=== PATIENT | female | born 1990 | race Caucasian/White ===

== ENCOUNTER 2018-03-04 15:15 | Emergency (ER) | payer OTHER ==
[2018-03-04 16:47] LABS: BASO % 0.1 % (0.0-1.0); EOS % 0.5 % (0.0-3.0); HEMOGLOBIN 11.4 g/dl (12.0-15.5); IMMATURE GRANULOCYTE % 0.3 % (0-3.0); LYMPH # 1.8 10^3/uL (1.5-6.5); LYMPH % 22.9 % (24.0-44.0); MEAN CORPUSCULAR HEMOGLOBIN 28.9 pg (27.0-33.0); MEAN CORPUSCULAR HGB CONC 32.6 g/dl (32.0-36.5); MEAN CORPUSCULAR VOLUME 88.6 fl (80.0-96.0); MONO # 0.8 10^3/uL (0.0-0.8); NEUTROPHILS # 5.2 10^3/uL (1.8-7.7); NEUTROPHILS % 66.2 % (36.0-66.0); PLATELET COUNT, AUTOMATED 234 10^3/uL (150-450); RED BLOOD COUNT 3.95 10^6/uL (4.00-5.40); WHITE BLOOD COUNT 7.9 10^3/uL (4.0-10.0)
[2018-03-04 17:08] LABS: ANION GAP 8 MEQ/L (8-16); BLOOD UREA NITROGEN 7 MG/DL (7-18); CALCIUM LEVEL 8.3 MG/DL (8.5-10.1); CARBON DIOXIDE LEVEL 25 MEQ/L (21-32); CHLORIDE LEVEL 106 MEQ/L (98-107); CREATININE FOR GFR 0.45 MG/DL (0.55-1.30); GLOMERULAR FILTRATION RATE > 60.0 (>60); GLUCOSE, FASTING 89 MG/DL (70-100); MAGNESIUM LEVEL 2.1 MG/DL (1.8-2.4); POTASSIUM SERUM 4.2 MEQ/L (3.5-5.1); SODIUM LEVEL 139 MEQ/L (136-145)
[2018-03-04 17:53] LABS: AMORPHOUS SEDIMENT SMALL (NEGATIVE); APPEARANCE, URINE CLOUDY (CLEAR); BACTERIA, URINE AUTO NEGATIVE (NEGATIVE); BILIRUBIN, URINE AUTO NEGATIVE (NEGATIVE); BLOOD, URINE BLOOD NEGATIVE (NEGATIVE); COLOR, URINE YELLOW (YELLOW); GLUCOSE, URINE (UA) AUTO NEGATIVE (NEGATIVE); KETONE, URINE AUTO NEGATIVE (NEGATIVE); LEUKOCYTE ESTERASE, URINE AUTO 1+ (NEGATIVE); NITRITE, URINE AUTO NEGATIVE (NEGATIVE); PROTEIN, URINE AUTO NEGATIVE (NEGATIVE); RBC, URINE AUTO 2 /HPF (0-3); SPECIFIC GRAVITY URINE AUTO 1.009 (1.002-1.035); SQUAMOUS EPITHELIAL CELL UR AU 9 /HPF (0-6); TRANSITIONAL EPITHELIAL AUTO <1 /HPF; UROBILINOGEN, URINE AUTO 0.2 mg/dL (0.0-2.0); WBC, URINE AUTO 5 /HPF (0-3)
== END 2018-03-04 18:11 | disposition home or self-care (01) ==
LOC: M ED 15:15
DX: O99.89 Other specified diseases and conditions complicating pregnancy, childbirth and the puerperium (principal); H81.10 Benign paroxysmal vertigo, unspecified ear; O99.012 Anemia complicating pregnancy, second trimester; Z3A.00 Weeks of gestation of pregnancy not specified; Z79.82 Long term (current) use of aspirin; Z79.899 Other long term (current) drug therapy; Z88.1 Allergy status to other antibiotic agents
CPT/HCPCS: 93005

== ENCOUNTER 2018-05-04 16:59 | Outpatient (CLI) | payer OTHER ==
[~2018-05-04] VITALS: Ht 160 cm; Wt 75.4 kg
[~2018-05-04 16:59] MED LIST: ASPI81TA85 PO; MAGN250T11 PO; PRENTAB55 PO; ZOLO25TA PO
[2018-05-04 17:19] VITALS: BP 123/67
[2018-05-04] MEDS ORDERED: MAPA500T17 PO (17:26)
[2018-05-04 17:54] VITALS: BP 119/70
[2018-05-04] MEDS ORDERED: CYCLOBENZAPRINE 10 MG TAB PO ONE ×2 (18:00→18:30)
[2018-05-04] MEDS ORDERED: CYCLOBENZAPRINE 5MG TABLET PO ONE ×2 (18:30)
== END 2018-05-04 18:28 | disposition home or self-care (01) ==
LOC: M LDO 16:59
PROVIDERS: ATTEND Obstetrics & Gynecology
DX: O9A.212 Injury, poisoning and certain other consequences of external causes complicating pregnancy, second trimester (principal); V46.9XXA Unspecified car occupant injured in collision with other nonmotor vehicle in traffic accident, initial encounter; Y92.89 Other specified places as the place of occurrence of the external cause; Z3A.25 25 weeks gestation of pregnancy
CPT/HCPCS: G0378; G0463

== ENCOUNTER 2018-05-31 18:29 | Emergency (ER) | payer OTHER ==
[~2018-05-31] VITALS: Ht 160 cm; Wt 80.7 kg
[~2018-05-31 18:29] MED LIST changes: +MAPA500T2 PO
[2018-05-31] MEDS ORDERED: KETOROLAC 60 MG/2 ML VIAL (J1885) IM ONE (19:45)
[2018-05-31] MEDS ORDERED: METHOCARBAMOL 500 MG TAB PO ONE (19:45)
[2018-05-31] MEDS ORDERED: ROBA500T PO (21:00)
[2018-05-31] MEDS ORDERED: NORCOTAB PO (21:00)
[2018-05-31 21:09] VITALS: BP 121/60
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
== END 2018-05-31 21:15 | disposition home or self-care (01) ==
LOC: M ED 18:29
DX: M54.5 Low back pain (principal)
CPT/HCPCS: 72100; 96372; 99283; J1885

== ENCOUNTER 2018-06-13 11:52 | Emergency (ER) | payer OTHER ==
[~2018-06-13] VITALS: Ht 160 cm; Wt 81.8 kg
[~2018-06-13 11:52] MED LIST changes: +NORCOTAB PO; +ROBA500T PO
[2018-06-13] MEDS ORDERED: SERT-155 (11:58)
[2018-06-13] MEDS: PERCOCET 5MG/325MG TAB PO ONE (13:31)
[2018-06-13] MEDS: BACLOFEN 10 MG TAB PO ONE (13:31)
[2018-06-13 14:55] VITALS: BP 118/60
== END 2018-06-13 14:56 | disposition home or self-care (01) ==
LOC: M ED 11:52
DX: O99.89 Other specified diseases and conditions complicating pregnancy, childbirth and the puerperium (principal); M54.5 Low back pain

== ENCOUNTER 2018-07-08 11:07 | Outpatient (CLI) | payer OTHER ==
[~2018-07-08] VITALS: Ht 160 cm; Wt 85.5 kg
[~2018-07-08 11:07] MED LIST changes: +SERT-155
[2018-07-08 11:28] VITALS: BP 118/67
[2018-07-08] MEDS ORDERED: PRENTAB9 PO (11:31)
[2018-07-08 12:01] VITALS: BP 119/66
--- NOTE | 2018-07-08 13:03 | IPNPDOC ---
Text Note Date of Service The patient was seen on 07/08/18. NOTE Triage Note Alma is a 28yo with SIUP at approx 34wk who presents with not really feeling any movement since last night. She did begin feeling movement in triage. Has had some congestion she thinks related to seasonal allergies, but otherwise not feeling ill. No LOF, no vaginal bleeding, no ctx. No f/c/n/v. She has hx of GHTN x2, is set to do a 24hr UP test this week. She also has hx of both a 3mll and 4mll. She attends Centering. Vitals wnl. Afebrile. General: WDWN, resting comfortably Abdomen: soft, gravid, NTTP Extremities: no edema BLE TAUS: vela IUP with oblique lie, +FCA, +FM, MVP 7cm, anterior placenta Cat I FHRT with bl 110, +accels, -decels, mod tameka [place]: rare ctx Assessment: Alma is a 28yo with SIUP at approx 34wk with DFM having reassuring assessment with Cat I FHRT and MVP of 7cm. Vitals wnl, benign exam. Plan: -safe for discharge -continue with routine centering visits -return 24hr UP test to lab this week as previously instructed -continue adequate hydration and activity as tolerated -I did employment counselor Alma at this visit regarding hx of her 4mll that followed a 3mll. She has some dyspareunia. We discussed risk for recurrence of 4mll and if that should happen, she could have worsening of dyspareunia potentially or even fecal incontinence later in life. There is of course the possibility that she could have an with no laceration at all or a very minor one. She is a candidate for PLTCS. We discussed that surgery has risks also, so she should consider the risks and benefits and we can discuss further at a visit in the future if she would like to. MD LESLY Hunter,Anderson, I+O LESLY, Anderson, I+O Vital Signs Date Time Temp Pulse Resp B/P (MAP) Pulse Ox O2 Delivery O2 Flow Rate FiO2 07/08/18 12:01 91 18 119/66 (83) 07/08/18 11:28 98.6 Eulalia Hines MD Jul 08, 2018 13:02
== END 2018-07-08 13:05 | disposition home or self-care (01) ==
LOC: M LDO 11:07
PROVIDERS: ATTEND Obstetrics & Gynecology
DX: O36.8130 Decreased fetal movements, third trimester, not applicable or unspecified (principal); Z3A.34 34 weeks gestation of pregnancy
CPT/HCPCS: 59025; 76815; G0378; G0463

== ENCOUNTER 2018-07-16 16:06 | Outpatient (CLI) | payer OTHER ==
[~2018-07-16] VITALS: Ht 160 cm; Wt 86.4 kg
[~2018-07-16 16:06] MED LIST changes: +PRENTAB9 PO
[2018-07-16 16:21] VITALS: BP 146/83
[2018-07-16] MEDS ORDERED: MAPA500T2 PO (16:27)
[2018-07-16] MEDS ORDERED: FIORICET TAB PO ONE (17:30)
[2018-07-16 17:39] VITALS: BP 134/70
[2018-07-16 17:58] LABS: HEMATOCRIT 30.6 % (36.0-47.0); MEAN CORPUSCULAR HEMOGLOBIN 30.9 pg (27.0-33.0); MEAN CORPUSCULAR HGB CONC 32.7 g/dl (32.0-36.5); MEAN CORPUSCULAR VOLUME 94.4 fl (80.0-96.0); PLATELET COUNT, AUTOMATED 123 10^3/uL (150-450); RED BLOOD COUNT 3.24 10^6/uL (4.00-5.40); WHITE BLOOD COUNT 11.9 10^3/uL (4.0-10.0)
[2018-07-16 18:18] LABS: CREATININE,RANDOM URINE 56.5 MG/DL
[2018-07-16 18:20] LABS: ALBUMIN 2.7 GM/DL (3.2-5.2); ALT/SGPT 17 U/L (12-78); BILIRUBIN,TOTAL 0.2 MG/DL (0.2-1.0); BLOOD UREA NITROGEN 4 MG/DL (7-18); CALCIUM LEVEL 8.5 MG/DL (8.5-10.1); CARBON DIOXIDE LEVEL 24 MEQ/L (21-32); CHLORIDE LEVEL 109 MEQ/L (98-107); CREATININE FOR GFR 0.49 MG/DL (0.55-1.30); GLOMERULAR FILTRATION RATE > 60.0 (>60); GLUCOSE, FASTING 76 MG/DL (70-100); SODIUM LEVEL 141 MEQ/L (136-145); TOTAL PROTEIN 6.2 GM/DL (6.4-8.2)
[2018-07-16 18:49] VITALS: BP 166/88
[2018-07-16] MEDS ORDERED: CYPROHEPTADINE 4 MG TAB GT SCH (19:00)
--- NOTE | 2018-07-16 20:23 | IPNPDOC ---
Text Note Date of Service The patient was seen on 07/16/18. NOTE Triage Note Alma is a 28yo with SIUP at 35w5d who presents with persistent headache/migraine since last night. She tried tylenol last night and again this morning but had no relief. She has a hx of GHTN x2 and has taken ASA this . Recently she completed a 24hr urine protein which was 438mg (increased from baseline 127mg), which was performed just because she wasn't feeling well. She does not have any documented elevated bp's from clinic encounters. She does have a history of migraines. Fioricet makes her nauseous and Mg she felt never helped her. She has not tried anything else other than the tylenol. She feels movement. No LOF, no vaginal bleeding, no ctx. No f/c/n/v. Vitals: BPs: 145/76 then multiple normal bp's then 146/83 (also had a systolic bp 160's when lying on the cuff), afebrile Exam: General: WDWN, resting comfortably Abdomen: soft, gravid, NTTP Extremities: no edema BLE SSE (RN as bench technician): closed/thick/high Cat I FHRT with bl 110, +accels, -decels, mod tameka [place]: occasional ctx Labs: H/H 03/14.6, plt 123 (plt were 175 at 28wk) urine prot: creat 0.55 creat 0.49, AST 19, ALT 17 Assessment: Alma is a 28yo with SIUP at 35w5d with current migraine in the setting of gestational proteinuria, not yet meeting criteria for GHTN or pre-E. This headache does not seem consistent with pre-E PEREA given that patient was sleeping in triage and had good appetite to eat dinner. She was given a dose of cyproheptadine in triage and had some relief. Today is first noted mild range bp's- no others noted in her clinic chart. Mild anemia noted on H/H, plt are 123 but this is not a drastic change from 28wk. Normal creat/LFTs. Reassuring status. No e/o PTL. Plan: -safe for discharge -patient to be seen in clinic for weekly visits -will begin APFTs to keep a close eye on bp's and watch carefully for development of GHTN/pre-E. We can begin these this Tuesday after her centering visit. -patient desires PLTCS for history of 3mll followed by 4mll. She was previously counseled and will have pre-op visit as scheduled. -encouraged increased hydration -if patient would like cyproheptadine at home for migraines, we can write an Rx to [facility] -return precautions discussed. Dr. Eulalia Hines MD VS,Anderson, I+O VS, Anderson, I+O Laboratory Tests 07/16/18 17:41 Red Blood Count 3.24 L, Mean Corpuscular Volume 94.4, Mean Corpuscular Hemoglobin 30.9, Mean Corpuscular Hemoglobin Concent 32.7, Red Cell Distribution Width 13.9, Calcium Level 8.5, Aspartate Amino Transf (AST/SGOT) 19, Alanine Aminotransferase (ALT/SGPT) 17, Alkaline Phosphatase 140 H, Total Bilirubin 0.2, Total Protein 6.2 L, Albumin 2.7 L Vital Signs Date Time Temp Pulse Resp B/P (MAP) Pulse Ox O2 Delivery O2 Flow Rate FiO2 07/16/18 18:49 97.8 84 18 166/88 (114) Eulalia Hines MD Jul 16, 2018 20:17
== END 2018-07-16 20:30 | disposition home or self-care (01) ==
LOC: M LDO 16:06
PROVIDERS: ATTEND Obstetrics & Gynecology
DX: O99.89 Other specified diseases and conditions complicating pregnancy, childbirth and the puerperium (principal); G43.909 Migraine, unspecified, not intractable, without status migrainosus; Z3A.35 35 weeks gestation of pregnancy
CPT/HCPCS: 36415; 59025; 80053; 82570; 84156; 85027; G0378; G0463

== ENCOUNTER 2018-07-22 14:06 | Outpatient (CLI) | payer OTHER ==
[~2018-07-22] VITALS: Ht 160 cm; Wt 90.6 kg
[2018-07-22 14:32] VITALS: BP 124/77
[2018-07-22 16:03] LABS: CREATININE,RANDOM URINE 16.4 MG/DL; TOTAL PROTEIN,RANDOM URINE 11.6 MG/DL (0.0-12.0)
[2018-07-22 16:09] VITALS: BP 131/71
[2018-07-22 16:16] LABS: ALT/SGPT 18 U/L (12-78); BILIRUBIN,TOTAL 0.4 MG/DL (0.2-1.0); CREATININE FOR GFR 0.51 MG/DL (0.55-1.30); GLOMERULAR FILTRATION RATE > 60.0 (>60); LDH LACTATE DEHYDROGENASE 199 U/L (84-246); URIC ACID 4.3 MG/DL (2.6-6.0)
--- NOTE | 2018-07-24 11:05 | HPE ---
DATE OF ADMISSION: 07/22/2018 This lady is a 28-year-old 3, para 2, last menstrual period (LMP) 11/08/2017, estimated date of confinement (EDC) 08/15/2018 at 36 and 6 weeks of gestation, was seen here in labor and delivery for evaluation of preeclampsia three days ago. Her history is that she had an elevated blood pressure, ruled out gestational hypertension. She had a proteinuria and she was doing her own blood pressure monitoring with blood pressure cuff that was from [facility] and had significant elevated blood pressures, but she has no headache. No visual disturbances. No right upper quadrant pain. No edema. Her risk factors is she has had gestational hypertension her last two pregnancies. She has had perineal trauma and is scheduled for elective primary section August 08, 2018. She has depression and goes to the [place] for help, is on Zoloft, has migraines which are retractable, and she has urinary protein that is elevated at 428. PAST HISTORY: 2015 at 39 weeks, 9 pound 6 ounce male, fourth degree tear, gestational hypertension. 2013 at 42 weeks, 8 pound 8 ounce male, third degree tear, gestational hypertension. LABS: O positive, HIV negative, hepatitis negative, RPR negative, rubella immune. Varicella immune. Pap normal. 1 hour glucose was 98. Her previous blood work her chemistry was normal. Her protein creatinine ratio is 0.54 and a 24 hour urine was 428. Blood pressure today is 124/72, respirations are 18, pulse 117 and temperature is 98.4. Category 1 strip. No contractions, moderate variability. No decelerations and baseline was normal. We repeated her preeclamptic profile. Her protein creatinine ratio is 0.70. The rest the preeclamptic profile was normal. We repeated her blood pressure an hour later and her blood pressure is 131/71, respirations were 18, pulse was 100. The patient does not have right upper quadrant pain. No visual disturbances. No edema and demonstrates no headache or migraine. Our plan of management is to allow her to go home. She has an appointment Dr. Hines in 48 hours. She has an elective primary section on August 08, 2018. We may want to bring that forward. We reviewed with the risks and benefits of preeclampsia and when to call the provider, which include headache, migraine visual disturbances, right upper quadrant pain, edema, or decreased movement, bleeding, none of which she has had. The patient was discharged undelivered. All questions were answered and she has a followup in 48 hours.
== END 2018-07-22 16:45 | disposition home or self-care (01) ==
LOC: M LDO 14:06
PROVIDERS: ATTEND Obstetrics & Gynecology
DX: O16.3 Unspecified maternal hypertension, third trimester (principal); Z3A.36 36 weeks gestation of pregnancy
CPT/HCPCS: 59025; 82247; 82565; 82570; 83615; 84156; 84450; 84460; 84550; G0378; G0463

== ENCOUNTER 2018-07-25 15:57 | Inpatient (IN) | payer OTHER ==
[~2018-07-25] VITALS: Ht 160 cm; Wt 90.3 kg
[2018-07-25] MEDS ORDERED: PENICILLIN G POTASSIUM IV 5 MU in D5W MINI-BAG PLUS 100 ML IV STA (16:41)
[2018-07-25] MEDS ORDERED: LACTATED RINGER'S 1000 ML IV STA (16:41)
[2018-07-25 18:33] LABS: HEMATOCRIT 30.7 % (36.0-47.0); HEMOGLOBIN 10.1 g/dl (12.0-15.5); MEAN CORPUSCULAR HEMOGLOBIN 30.8 pg (27.0-33.0); MEAN CORPUSCULAR HGB CONC 32.9 g/dl (32.0-36.5); MEAN CORPUSCULAR VOLUME 93.6 fl (80.0-96.0); PLATELET COUNT, AUTOMATED 127 10^3/uL (150-450); RED BLOOD COUNT 3.28 10^6/uL (4.00-5.40); WHITE BLOOD COUNT 11.1 10^3/uL (4.0-10.0)
[2018-07-25] MEDS: LR 1,000 ML IV SCH ×2 (18:37→21:17)
[2018-07-25 18:47] LABS: ALT/SGPT 17 U/L (12-78); BILIRUBIN,TOTAL 0.4 MG/DL (0.2-1.0); CREATININE FOR GFR 0.48 MG/DL (0.55-1.30); GLOMERULAR FILTRATION RATE > 60.0 (>60); LDH LACTATE DEHYDROGENASE 181 U/L (84-246); URIC ACID 4.6 MG/DL (2.6-6.0)
[2018-07-25] MEDS ORDERED: miSOPROStol 25 MCG 1/4 TAB (S0191) As Ordered ONE (18:57)
[2018-07-25] MEDS ORDERED: miSOPROStol 25 MCG 1/4 TAB (S0191) PV ONE (19:00)
[2018-07-25 19:49] VITALS: BP 138/59
--- NOTE | 2018-07-25 20:27 | HPEPDOC ---
Obstetrical History & Physical General Date of Admission Jul 25, 2018 at 15:57 History of Present Illness Alma is a 28yo with SIUP at 37w0d by lmp c/w 8wk u/s who presented to the office today for routine visit/APFT/pre-op for planned PLTCS (indicated for her stated hx of prior 3mll followed by a 4mll). On review of her chart, I noted that she had a mild range bp on 07/19 after I saw her on 07/16 when she had a mild range bp at that visit. Given that she already had diagnosis of gestational proteinuria (24hr urine protein was 438mg up from 127mg baseline), this finding actually gives her the new diagnosis of pre-eclampsia withOUT severe features. She also notes very recent bilateral ankle swelling. No headaches/vision changes/abdominal pain. We discussed this new diagnosis and recommendation for delivery at 37wk. We had previously discussed her candidacy for PLTCS if she had a history of 3mll followed by 4mll. However, she noted that she had a very difficult recovery after the 3mll but not the 2nd delivery, so I suspect that maybe her laceration was not a 4mll- especially since no one specifically told her that it was. She tried to obtain records from that delivery but was unable to. We discussed all of this today, and since I recommend delivery now at 37wk with her new diagnosis, and the questionable nature of the last laceration, I gave the patient the option of IOL vs PLTCS- she chooses to proceed with IOL. Chief Complaint: Pre-eclamsia, Induction of labor Information Provided By: Patient Care Care: Good Care Dating Final EDC: Aug 15, 2018 Final EDC by: LMP, 1st trimester (US) Antepartum Course Diagnos(e)s Depression on zoloft and sees BH, migraines on mag oxide, Hx of GHTN x2 previously, hx of prior 3mll definitely (unlikely 4mll with 2nd delivery), overweight (BMI 25.8 at start of ) Height (inches): 63 Pre- weight (lbs.): 145 Admission Weight (lbs.): 199 Change in Weight (lbs.): 54 Past Medical History Past Obstetrical History : Past Obstetrical History: Multigravida (08/02/13 42wk iol 8lb8oz GHTN 3mll, 02/08/16 39wk [place] labor 9lb6oz (uncertain type of lac)) STONE BREAKER History: No pertinent history Past Medical History Medical History Depression, asthma (no use of inhaler), anxiety, migraines, fibromyalgia Surgical History: [place] teeth Family History Significant Family History: No pertinent family hx Social History Marital Status: Family situation: Spouse/partner home Psychosocial History: Anxiety, Depression * Smoker: non-smoker Alcohol: Denies Drugs: denies Imunizations Tdap status: current Influenza Status: current Allergies Coded Allergies: Bacitracin (Verified Allergy, Unknown, RASH, 07/25/18) Azithromycin (Verified Adverse Reaction, Mild, VOMITTING, 07/25/18) Medications Scheduled Acetaminophen (Mapap) 500 Mg Tab, 1,000 MG PO ONCE Aspirin (Aspir-81) 81 Mg Tab, 1 TAB PO DAILY for pain Multivitamins/ ( 27-0.8 mg) 1 Tab Tab, 1 TAB PO DAILY Miscellaneous Medications (Sertraline HCl) 50 Mg Tab Physical Examination Physical Examination GENERAL: Alert and oriented times three. ABDOMEN: Gravid and non-tender to touch. FETUS: Is vertex (VTX) by TAUS EXTREMITIES: 1+ edema BLE Laboratory Data 24H LABS Laboratory Tests 2 07/25/18 16:30: Serology Scanned Report Hepatitis B Testing 07/25/18 18:08: Nucleated Red Blood Cells % (auto) 0.0, Glomerular Filtration Rate > 60.0, Creatinine 0.48L, Aspartate Amino Transf (AST/SGOT) 17, Alanine Aminotransferase (ALT/SGPT) 17, Lactate Dehydrogenase 181, Total Bilirubin 0.4, Uric Acid 4.6 CBC/BMP Laboratory Tests 07/25/18 18:08 Red Blood Count 3.28 L, Mean Corpuscular Volume 93.6, Mean Corpuscular Hemoglobin 30.8, Mean Corpuscular Hemoglobin Concent 32.9, Red Cell Distribution Width 14.2, Aspartate Amino Transf (AST/SGOT) 17, Alanine Aminotransferase (ALT/SGPT) 17, Lactate Dehydrogenase 181, Total Bilirubin 0.4, Uric Acid 4.6 Pertinent Laboratoy Data Blood Type: O+ RBC Antibody Screen: Negative HIV: Negative Hepatitis B: Negative Hepatitis C: Unknown Rapid Plasma Reagin: Nonreactive Rubella: Immune Varicella: Immune Chlamydia/Gonorrhea: Negative Group B Streptococcus: Positive Glucose Tolerance Test: 98 Anatomy Ultrasound Ultrasound Date: Apr 04, 2018 Placenta Location: Anterior Normal Anatomy: Yes Placenta Previa: No Steroid Therapy Steroid Therapy: No Vaginal Examination Dilation: 1cm Effacement: other (thick) Station: -3 Cervical Consistency: Firm Cervical Position: Posterior Presentation: Cephalic presentation Assessment Heart Rate (FHR): 115 Variability: Moderate Accelerations: Positive Decelerations: None Tocometer Contractions: Yes Frequency: irregular Duration: greater than 60 seconds Strength: palpated as mild Assessment/Plan Assessment Alma is a 28yo with SIUP at 37w0d by lmp c/w 8wk u/s admitted to L&D for IOL indicated for new diagnosis of pre-eclampsia withOUT severe features based on two mild range bp's on two separate occasions in the setting of 24hr UP 438mg, a >300mg increase from baseline 127mg. She currently is normotensive with no other s/sx of pre-E, just having BLE edema. She has low plt, 127, but this is stable from 28wk. GBS positive per verbal report from clinic nursing, Ahlta was down so no printed report available. Cephalic via TAUS. Cat I FHRT, irreg ctx. SCE 1/thick/-3, fisher bulb placed with 40cc NS as well as 25mcg PV cytotec. Plan Admit and orient. Cylinder Press Feeder and consent. Diet: regular for dinner then clear liquids Group B Streptococcus (GBS) positive via verbal report from clinic nurse (result not in chart and Ahlta was down), PCN per protocol Labs and intravenous (IV) per unit protocol. Counseled on cytotec, fisher bulb, Pitocin and induction of labor (IOL). Lactated Ringers (LR): Bolus 500 mL, then at 125 mL/hr. Anticipate normal spontaneous delivery () Safe to proceed MD Donny Hunter Katrina D MD Jul 25, 2018 20:27
[2018-07-25 21:17] VITALS: BP 120/59
[2018-07-25] MEDS: PENICILLIN G POTASSIUM IV 2.5 MU in APPROPRIATE DILUENT 1 EA IV SCH (22:51)
[2018-07-25] MEDS ORDERED: miSOPROStol 50 MCG 1/2 TAB (S0191) PO SCH (23:00)
[2018-07-25 23:09] VITALS: BP 118/55
[2018-07-26] VITALS (37 sets, daily range): BP systolic 109–188; BP diastolic 53–104
--- NOTE | 2018-07-26 01:43 | IPNPDOC ---
Text Note Date of Service The patient was seen on 07/26/18. NOTE Intrapartum Note Patient feeling cramping with ctx. Last received PO cytotec around 2300. Vitals wnl, afebrile Cat I FHRT, mod tameka, +accels, -decels [place]: ctx q2min Tugged on fisher bulb and it came out Will initiate pitocin 4 hours after last cytotec dose (around 0300) and titrate per protocol Will continue to closely observe Safe to proceed Dr. Eulalia Hines MD VS,Anderson, I+O VS, Anderson, I+O Laboratory Tests 07/25/18 18:08 Red Blood Count 3.28 L, Mean Corpuscular Volume 93.6, Mean Corpuscular Hemoglobin 30.8, Mean Corpuscular Hemoglobin Concent 32.9, Red Cell Distribution Width 14.2, Aspartate Amino Transf (AST/SGOT) 17, Alanine Aminotransferase (ALT/SGPT) 17, Lactate Dehydrogenase 181, Total Bilirubin 0.4, Uric Acid 4.6 Vital Signs Date Time Temp Pulse Resp B/P (MAP) Pulse Ox O2 Delivery O2 Flow Rate FiO2 07/26/18 00:33 98.4 91 18 119/56 (77) Eulalia Hines MD Jul 26, 2018 01:43
[2018-07-26] MEDS ORDERED: OXYTOCIN DRIP 30 UNITS in APPROPRIATE DILUENT 1 EA IV SCH ×2 (01:45→13:56)
[2018-07-26] MEDS ORDERED: BUTORPHANOL 2 MG/ML INJ (J0595) IV ONE (02:30)
[2018-07-26] MEDS: PENICILLIN G POTASSIUM IV 2.5 MU in APPROPRIATE DILUENT 1 EA IV SCH ×2 (02:55→06:53)
[2018-07-26] MEDS ORDERED: ONDANSETRON 4MG/2ML VIAL (J2405) IV ONE (03:00)
--- NOTE | 2018-07-26 06:11 | IPNPDOC ---
Text Note Date of Service The patient was seen on 07/26/18. NOTE Intrapartum Note Patient doing well, had 1 dose of IV stadol which helped her discomfort. Pitocin was turned off since patient had tachysystole. Vitals wnl, afebrile SCE: tight 5/50/-2, AROM performed with clear fluid noted, well tolerated Cat I FHRT with bl 110, +accels, -decels, mod tameka, fetus audibly moving all the time [place]: ctx q2-3min Will continue to closely observe, expect that AROM will help advance labor Discussed with patient now would be a good time for epidural if she wants one given that things will intensify now Safe to proceed Dr. Eulalia Hines MD VS,Anderson, I+O VS, Anderson, I+O Laboratory Tests 07/25/18 18:08 Red Blood Count 3.28 L, Mean Corpuscular Volume 93.6, Mean Corpuscular Hemoglobin 30.8, Mean Corpuscular Hemoglobin Concent 32.9, Red Cell Distribution Width 14.2, Aspartate Amino Transf (AST/SGOT) 17, Alanine Aminotransferase (ALT/SGPT) 17, Lactate Dehydrogenase 181, Total Bilirubin 0.4, Uric Acid 4.6 Vital Signs Date Time Temp Pulse Resp B/P (MAP) Pulse Ox O2 Delivery O2 Flow Rate FiO2 07/26/18 05:16 84 18 124/72 (89) 07/26/18 04:46 97.4 I&O- Last 24 Hours up to 6 AM 07/26/18 05:59 Intake Total 50 ml Balance 50 ml Eulalia Hines MD Jul 26, 2018 06:11
[2018-07-26] MEDS: LR 1,000 ML IV SCH ×2 (06:43→07:53)
[2018-07-26 07:08] LABS: HEMATOCRIT 30.4 % (36.0-47.0); HEMOGLOBIN 9.7 g/dl (12.0-15.5); MEAN CORPUSCULAR HGB CONC 31.9 g/dl (32.0-36.5); MEAN CORPUSCULAR VOLUME 97.1 fl (80.0-96.0); PLATELET COUNT, AUTOMATED 129 10^3/uL (150-450); RED BLOOD COUNT 3.13 10^6/uL (4.00-5.40); WHITE BLOOD COUNT 11.6 10^3/uL (4.0-10.0)
[2018-07-26] MEDS ORDERED: FENTANYL 2MCG/ML ROPIVACAINE 0.2% IN 0.9% NACL 100ML IVBAG As Ordered ONE (07:33)
[2018-07-26] MEDS ORDERED: LACTATED RINGER'S 1000 ML IV PRN (08:00)
[2018-07-26] MEDS ORDERED: NALOXONE INJ 0.4 MG/1 ML VIAL (J2310) IV PRN ×3 (08:00→12:39)
[2018-07-26] MEDS ORDERED: FENTANYL/ROPIVACAINE/NACL BAG 100 ML EPIDURAL SCH (08:00)
[2018-07-26] MEDS ORDERED: EPIDURAL COMMENT XX SCH (08:00)
[2018-07-26] MEDS ORDERED: ePHEDrine SULFATE 25 MG/5 ML(5MG/ML) SYRINGE IV PRN (08:00)
[2018-07-26] MEDS ORDERED: ONDANSETRON 4MG/2ML VIAL (J2405) IV PRN ×3 (08:00→13:45)
[2018-07-26] MEDS ORDERED: REFRIGERATOR IV KEYS XX PRN (08:00)
[2018-07-26] MEDS ORDERED: diphenhydrAMINE INJ 50MG/ML VIAL (J1200) IV PRN ×2 (08:00→12:39)
[2018-07-26] MEDS ORDERED: EPIDURAL/PCA KEYS XX PRN (08:00)
--- NOTE | 2018-07-26 09:13 | NUR ---
0900 review position post epidural active labor no Pitocin contractions q3 minutes moderate intensity, clear liquor pelvic exam cervix posterior 2-3 cm occiput transverse -3 station 60% effaced. Safe to proceed
[2018-07-26] MEDS ORDERED: BUPIVACAINE HCL 0.25% 10 ML VIAL SC ONE (11:15)
[2018-07-26] MEDS ORDERED: BICITRA 30ML SOLN UDC PO ONE (11:15)
[2018-07-26] MEDS ORDERED: ACETAMINOPHEN 650 MG SUPP PR ONE (11:15)
[2018-07-26] MEDS ORDERED: LIDOCAINE 2% W/EPIN INJ 20ML **PRES FREE As Ordered ONE (11:21)
[2018-07-26] MEDS ORDERED: OXYTOCIN INJ 10 UNITS/ML VIAL (J2590) As Ordered ONE (11:23)
[2018-07-26] MEDS ORDERED: PHENYLephrine HCL 500 MCG/5 ML (100MCG/ML) SYRINGE (J2370) As Ordered ONE (12:33)
[2018-07-26] MEDS ORDERED: ONDANSETRON 4MG/2ML VIAL (J2405) As Ordered ONE (12:33)
[2018-07-26] MEDS ORDERED: MORPHINE PRES-FREE INJ 10 MG/10 ML VIAL (J2274) As Ordered ONE (12:34)
[2018-07-26] MEDS ORDERED: NALBUPHINE HCL 10 MG/ML AMP (J2300) IV PRN (12:39)
[2018-07-26] MEDS ORDERED: METOCLOPRAMIDE INJ 10MG/2ML VIAL (J2765) IV PRN ×2 (12:39→13:45)
[2018-07-26 13:04] LABS: CORD GAS ABE A 0.3; CORD GAS HCO3 A 28.7 MEQ/L; CORD GAS O2 SAT A 28.3 %; CORD GAS PCO2 A 62.1 mmHg; CORD GAS PH A 7.282 UNITS; CORD GAS PO2 A 15.6 mmHg; CORD GAS SBC A 22.9 MEQ/L; CORD GAS TCO2 A 30.6 MEQ/L
[2018-07-26 13:07] LABS: CORD GAS ABE V -0.6; CORD GAS HCO3 V 25.8 MEQ/L; CORD GAS O2 SAT V 64.3 %; CORD GAS PCO2 V 48.7 mmHg; CORD GAS PH V 7.342 UNITS; CORD GAS PO2 V 27.3 mmHg; CORD GAS SBC V 23.1 MEQ/L; CORD GAS TCO2 V 27.3 MEQ/L
[2018-07-26] MEDS ORDERED: KETOROLAC 60 MG/2 ML VIAL (J1885) As Ordered ONE (13:24)
[2018-07-26] MEDS ORDERED: PERCOCET 5MG/325MG TAB PO PRN ×2 (13:45→17:30)
[2018-07-26] MEDS ORDERED: LR 1,000 ML IV SCH (13:45)
[2018-07-26] MEDS ORDERED: fentaNYL 100 MCG/2 ML INJECTION (J3010) IV PRN (13:45)
[2018-07-26] MEDS ORDERED: OXYTOCIN 30 UNITS IN 0.9% NaCl 500ML IV BAG (J2590) As Ordered ONE (13:59)
[2018-07-26] MEDS ORDERED: MOM 30ML SUSPENSION UDC PO PRN (14:00)
[2018-07-26] MEDS ORDERED: ANUSOL HC CREAM 30GM TOP PRN (14:00)
[2018-07-26] MEDS ORDERED: DOCUSATE SODIUM 100 MG CAP PO PRN (14:00)
[2018-07-26] MEDS ORDERED: MEASLES,MUMPS,RUBELLA VACCINE INJ (MMR-II) (90707) SC SCH (14:00)
[2018-07-26] MEDS ORDERED: RHOGAM 300 MCG (1500 IU) INJ (J2790) IM SCH (14:00)
[2018-07-26] MEDS ORDERED: METHYLERGONOVINE MALEATE 0.2 MG TAB PO PRN (14:00)
[2018-07-26] MEDS ORDERED: fentaNYL 100 MCG/2 ML INJECTION (J3010) As Ordered ONE (14:18)
--- NOTE | 2018-07-26 15:11 | IPN ---
DATE: 06/28/2018 This lady is a 28-year-old 3, para 2 at 37 weeks of gestation, was recently diagnoses with gestational hypertension. She has had two previous vaginal deliveries with perineal trauma, apparently a third and a fourth degree tear, and she had considerable convalescence with the last delivery. She had an elective primary section booked for 08/08/2018 but she was admitted for induction of labor because of diagnosis of gestational hypertension, proteinuria of 428 grams and ankle swelling. She is also group B Streptococcus (GBS) positive. She was started off with a Barragan bulb catheter and Cytotec, graduated to Pitocin. She did have GBS prophylaxis done. She eventually had Stadol and Phenergan and then progressed to having an epidural. She progressed along on examination at 0900, vertex presenting, well-applied, about 2-3 cm. Category 1 strip. At 11:00 o'clock in the morning, the patient requested her section as she did not want to continue along with the induction of labor as had been discussed with the previous provider. Her blood pressure is 118/53, respirations are 20, pulse is 100 and she is afebrile. Her complete blood count (CBC) indicates her hemoglobin 9.7, hematocrit 30.4 and platelets are 129. Her chemistry evaluation was all within normal limits with a glomerular filtration rate (GFR) of greater than 60. Liver enzymes were normal. We discussed the risks and benefits of section including hemorrhage, infection, perforation, , reoperation, remote possibility of hysterectomy, remote possibility of blood transfusions, remote possibility laceration and/or admission to the intensive care unit (NICU). The patient expressed understanding of all these concerns and risks for surgery and she signed the consent form. We have notified neonatology and we are awaiting anesthesia for reevaluating her epidural and/or replacing with a spinal. Our preliminary diagnosis is primary section due to previous perineal trauma, gestational hypertension, GBS positive. RALPH
[2018-07-26] MEDS: PERCOCET 5MG/325MG TAB PO PRN (17:33)
[2018-07-26 20:04] LABS: HEMATOCRIT 25.7 % (36.0-47.0); HEMOGLOBIN 8.3 g/dl (12.0-15.5); MEAN CORPUSCULAR HEMOGLOBIN 31.3 pg (27.0-33.0); MEAN CORPUSCULAR HGB CONC 32.3 g/dl (32.0-36.5); PLATELET COUNT, AUTOMATED 153 10^3/uL (150-450); RED BLOOD COUNT 2.65 10^6/uL (4.00-5.40); WHITE BLOOD COUNT 14.4 10^3/uL (4.0-10.0)
[2018-07-26] MEDS: KETOROLAC 30 MG/ML VIAL (J1885) IV SCH (20:19)
[2018-07-27] MEDS: KETOROLAC 30 MG/ML VIAL (J1885) IV SCH ×2 (02:10→09:01)
[2018-07-27 02:13] VITALS: BP 135/74
[2018-07-27] MEDS: PERCOCET 5MG/325MG TAB PO PRN ×4 (04:31→21:50)
[2018-07-27 06:43] VITALS: BP 120/64
[2018-07-27 07:00] LABS: HEMATOCRIT 23.3 % (36.0-47.0); HEMOGLOBIN 7.5 g/dl (12.0-15.5); MEAN CORPUSCULAR HEMOGLOBIN 31.3 pg (27.0-33.0); MEAN CORPUSCULAR HGB CONC 32.2 g/dl (32.0-36.5); MEAN CORPUSCULAR VOLUME 97.1 fl (80.0-96.0); PLATELET COUNT, AUTOMATED 130 10^3/uL (150-450); WHITE BLOOD COUNT 13.3 10^3/uL (4.0-10.0)
--- NOTE | 2018-07-27 07:48 | IPN ---
DATE OF SERVICE: 07/26/2018 This patient and her requested circumcision of their male infant. After discussing risks and benefits of circumcision, medical and nonmedical indications, penile block and aftercare, expressed understanding of penile block and aftercare and bleeding, signed the consent form. We await clearance by the thread machine operator.
[2018-07-27] MEDS: PRENATAL VITAMINS CHEWABLE TABLET PO SCH (09:00)
--- NOTE | 2018-07-27 09:47 | RO ---
DATE OF PROCEDURE: 07/26/2018 PREOPERATIVE DIAGNOSIS: Gestational hypertension, asynclitic head, failure progress, previous perineal trauma times two. POSTPROCEDURE DIAGNOSIS: Gestational hypertension, asynclitic head, failure progress, previous perineal trauma times two. OPERATION PROPOSED: Primary section. OPERATION PERFORMED: Primary section. SURGEON: Dr. Demetri Stratton JEWELRY DEPARTMENT SUPERVISOR: Esther Olguin CNM for extraction and retraction and visualization. ANESTHESIA: Epidural plus local anesthetic for intraperitoneal procedures. ESTIMATED BLOOD LOSS: 1000 mL. DESCRIPTION OF PROCEDURE: After adequate anesthesia, prepped and draped in the supine position, Barragan catheter in the bladder draining clear urine, acetaminophen suppository 1300 mg per rectum, sequentials on board and appropriate antibiotic prophylaxis, a Pfannenstiel incision was made two fingerbreadths above the symphysis pubis passing through abdominal layers securing hemostasis. On opening the peritoneal cavity, we noticed the head was very synclitic, was out of the pelvis and this is the etiology why the heart was Doppler tone garay up above the umbilicus almost to the right upper quadrant. The lower segment was extremely thin and there was extreme vascularity in that area with huge large and tortuous venous blood vessels. A transverse incision was made through and then there was profuse bleeding from those vessels. We had an easy delivery of a live male , weighing 7 pounds 4 ounces, 3300 grams, Apgars of 7 and 9 at one and 5 minutes respectively. Arterial pH was 7.28, base excess was 0.3, venous pH 7.34, base excess -0.6. The placenta was manually removed, three-vessels and the cord, membranes and tissues intact. We then swept out the uterine cavity. No evidence of excessive tissue or membranes. Again, there was profuse bleeding, both from the upper and the lower parts of the incisional site with huge varicosities noted. We put ring forceps on all areas of out of control bleeding and then we did a continuous running stitch of the first layer. We then required to do several interrupted stitches where the varicosities just would not be under control. The uterus itself contracted well down under Pitocin and blanched quite nicely. We then went ahead and evaluated the rest of the abdomen and there was quite a lot of blood in the left gutter. We went ahead and evaluated and extracted the blood and the clots from both the right and the left paracolic gutter, but there seemed to be continually dripping from the left paracolic gutter. After again reviewing the lower incision and imbricating the second layer, even though we had a pack inside in the left side that was still soaked with blood. We then went ahead and with a [place] ran the tube, looked at the ovary, looked at the varicosities and could not find any evidence of bleeding. We looked at the left paracolic gutter again and there was still some dripping blood in that area. We then went ahead and looked at the splenic flexure which seemed to be normal. Eventually, we removed the uterus out of the abdomen to look at the posterior wall of the uterus and that was normal. The uterosacrals were normal. There was no evidence of defect anywhere. We replaced the uterus into the abdomen. We then waited for about 5 minutes with the pack in place. There was no evidence of active bleeding after that. We then went ahead and over sewed the peritoneum. We took a last look at the incisional site and it appeared to be normal. We then closed the fascia with interrupted subcutaneous, Dexon to the skin and Marcaine 0.25%, 10 mL, subcuticular. [place] and Telfa were applied. Urine was clear. The patient was sent to recovery in good condition. Approximate blood loss was 1000 mL. We will review her CBC in 4 hours time.
[2018-07-27 10:12] VITALS: BP 136/69
--- NOTE | 2018-07-27 10:42 | IPN ---
DATE: 07/27/2018 day #1. This lady is 28-year-old, 3, now para 3, who had a primary section at 37 weeks for gestational hypertension, perineal trauma times two. Delivered a male infant, 7 pounds 4 ounces, 3300 grams, Apgars of 7 and 9 at one and five minutes respectfully. Arterial pH 7.28, base excess 0.3, venous pH 7.34, base excess -0.6. On her first day, her blood pressures is 120/64, respirations are 18, pulse 111 and temperature 97.8. She had a considerable bleed and in monitoring her hemoglobin her initial hemoglobin was 10.1, hematocrit 30.7 and platelets were 127. day hemoglobin is 7.5, hematocrit 23.3 and platelets are 130. She is asymptomatic. We discussed phlebitis, cystitis, mastitis, endometritis, cellulitis; diet, exercise and pain management; perineal, breast and wound care. The rest examination unremarkable. Normocephalic, atraumatic. Neck full range of motion. Pupils equal and reactive to light. Distal pulses symmetric. No evidence of deep vein thrombosis (DVT), pulmonary embolus (PE) or superficial phlebitis. Chest is clear bilaterally to bases. No wheezes or rhonchi. Abdomen: Soft. Uterus two below. Lochia is moderate. Four quadrant bowel sounds are noted. Incision is clean and dry. She has no rashes, lesions or pruritus. No complaints of arthralgia or myalgia. No cough, wheeze, shortness of breath or dyspnea on exertion. In summary, we have a 37+ week of gestation, primary section for gestational hypertension (GHTN) and perineal trauma times two, planning on discharge for tomorrow.
[2018-07-27] MEDS: SERTRALINE HCL 50 MG TAB PO SCH (11:38)
[2018-07-27 14:10] VITALS: BP 130/80
[2018-07-27] MEDS: IBUPROFEN 800 MG TAB PO SCH (16:01)
[2018-07-27 18:10] VITALS: BP 140/71
[2018-07-27 22:00] VITALS: BP 146/88
[2018-07-28 00:10] VITALS: BP 143/90
[2018-07-28] MEDS: IBUPROFEN 800 MG TAB PO SCH ×2 (00:28→08:35)
[2018-07-28 02:00] VITALS: BP 131/69
[2018-07-28 06:00] VITALS: BP 140/73
[2018-07-28] MEDS: PERCOCET 5MG/325MG TAB PO PRN (08:34)
[2018-07-28] MEDS: SERTRALINE HCL 50 MG TAB PO SCH (08:34)
[2018-07-28] MEDS: PRENATAL VITAMINS CHEWABLE TABLET PO SCH (08:34)
[2018-07-28] MEDS ORDERED: IBUP-1114 PO (09:01)
[2018-07-28] MEDS ORDERED: ANUS2.5C2 TOP (09:01)
[2018-07-28] MEDS ORDERED: COLA100C5 PO (09:02)
[2018-07-28] MEDS ORDERED: OXYC1TAB23 PO ×2 (09:03→09:05)
[2018-07-28 10:00] VITALS: BP 159/79
--- NOTE | 2018-07-28 16:02 | DSES ---
DATE OF ADMISSION: 07/25/2018 DATE OF DISCHARGE: 07/28/2018 28-year-old, 3, now para 3, was admitted for induction of labor at 37 weeks. Had a previous history of perineal trauma times two. She also had gestational hypertension. She progressed along well, but elected to discontinue the induction of labor and have a section as was offered and actually was booked for 08/08/2018. She had a primary section of a male, 7 pounds 4 ounces (3300 grams) score of 7, 9 at 1 and 5 minutes, respectfully. Arterial pH 7.28, base excess 0.3, venous pH 7.34, base excess -0.6. She had significant blood loss of 1000 mL. We monitored her hemoglobin. Initial hemoglobin was 10.1, hematocrit 30.7 and platelets were 127. Discharge hemoglobin was 7.5, hematocrit 23.3 and platelets are 130 and she is asymptomatic. Her discharge blood pressure 140/72, respirations 18, pulse 90, and temperature 97.9. We discussed phlebitis, cystitis, mastitis, endometritis and cellulitis, diet, exercise, pain management, perineal, breast and wound care. We also discussed increasing her iron, iron rich vegetables, taking her vitamins. The rest examination is unremarkable. She is normocephalic, atraumatic. Neck full range of motion. Pupils equal and reactive to light. Distal pulses symmetric. No evidence of deep venous thrombosis (DVT), pulmonary embolism (PE) or superficial phlebitis. No wheezes or rhonchi. No costovertebral angle (CVA) tenderness. Abdomen is soft. Uterus is two below. Lochia is moderate. Four quadrant bowel sounds. Incision is clean and dry. She has no rashes, lesions or pruritus. No arthralgia, myalgia. No complaint joint pain. No complaint of cough, wheeze, shortness of breath or dyspnea on exertion. Not bleeding. Neuro complete. No incontinency, urgency or frequency. No nausea, vomiting, diarrhea or constipation. No diabetic issues. She has good support at home. Does not smoke, drink or abuse drugs, and no domestic violence. In summary, we have a term gestation delivered by primary section for previous perineal trauma and gestational hypertension. Medications were dispensed. She has a 2-week incision check and 6-week check.
== END 2018-07-28 12:20 | disposition home or self-care (01) | DRG 773 ==
LOC: M LDI 15:57 → M OBS 07-26 15:30
PROVIDERS: ADMIT Obstetrics & Gynecology; ATTEND Obstetrics & Gynecology
PROC: 3E0DXGC Introduction of Other Therapeutic Substance into Mouth and Pharynx, External Approach (ICD-10-PCS; 2018-07-25)
PROC: 10D00Z1 Extraction of Products of Conception, Low, Open Approach (ICD-10-PCS; principal; 2018-07-26 12:04)
DX: O14.94 Unspecified pre-eclampsia, complicating childbirth (principal); Z37.0 Single live birth; Z3A.37 37 weeks gestation of pregnancy; O99.820 Streptococcus B carrier state complicating pregnancy; O62.0 Primary inadequate contractions; Z87.59 Personal history of other complications of pregnancy, childbirth and the puerperium

== ENCOUNTER → 2019-01-09 | Outpatient (CLI) | payer OTHER ==
[~2019-01-09] MED LIST changes: +ANUS2.5C2 TOP; +COLA100C5 PO; +CONRAY-43 43% 50ML VIAL (Q9960) As Ordered ONE; +HYDR-3715 PO; +IBUP-1114 PO; -NORCOTAB PO; +OXYC1TAB23 PO; +PROHANCE 279.3MG/ML 5ML VIAL (A9576) As Ordered ONE
--- NOTE | 2019-01-09 09:30 | REP ---
MRI ARTHROGRAM LEFT HIP: TECHNIQUE: Coronal T1, STIR through the pelvis, post arthrogram axial T1 fat sat, T2 fat sat, coronal T1 fat sat, T2 fat sat, sagittal T1 fat sat, axial oblique T1 fat sat left hip. Visualized osseous structures demonstrate normal bone marrow signal. There is no bone marrow edema or occult fracture. There is no evidence of avascular necrosis. There is no evidence of labral tear. No paralabral cyst is seen. There is a normal amount of joint fluid. Surrounding soft tissue structures demonstrate no abnormal signal. The visualized intrapelvic structures appear unremarkable. IMPRESSION: Negative MR arthrogram left hip. No evidence of labral tear or other significant abnormality. Electronically Signed by Tae Jalloh MD 01/09/2019 11:58 P
--- NOTE | 2019-01-09 23:37 | REP ---
Left hip arthrogram The procedure was performed under the direction supervision of Dr. Jalloh. The benefits and risks including but not limited to pain, infection, bleeding and anaphylaxis were explained to the patient and informed consent was obtained. The left femoral neck was localized using fluoroscopic guidance. Skin was prepped and draped in a sterile fashion. 1% lidocaine was used as a local anesthetic. Using fluoroscopic guidance a 22 gauge spinal needle was inserted and advanced to the femoral neck. 0.5 ml of Conray 43 was injected to verify placement. 11 ml of a solution containing 20 ml of sterile saline and 0.15 ml of ProHance was injected into the joint. The needle was removed and the patient was taken to MRI for postprocedural imaging. The patient tolerated the procedure well and there were no immediate complications. Less than 6 seconds of fluoro time was utilized for this procedure. Reviewed by LUIS Lai 01/09/2019 04:57 P Electronically Signed by Tae Jalloh MD 01/09/2019 11:28 P
== END ==
LOC: M RADPRO 06:33
PROVIDERS: ATTEND Student in an Organized Health Care Education/Training Program
DX: M25.552 Pain in left hip (principal)
CPT/HCPCS: 27093; 73723; 77002; A9576; Q9960

== ENCOUNTER → 2019-07-15 | Outpatient (REF) | payer OTHER ==
[~2019-07-15] MED LIST changes: -CONRAY-43 43% 50ML VIAL (Q9960) As Ordered ONE; -PROHANCE 279.3MG/ML 5ML VIAL (A9576) As Ordered ONE; -SERT-155; +SERT50TA29
== END ==
LOC: M SFHCLERA 12:28
PROVIDERS: ATTEND Nurse Practitioner Family
DX: R68.89 Other general symptoms and signs (principal)